=== PATIENT | male | born 1990 | race Caucasian/White ===

== ENCOUNTER 2016-10-30 19:39 | Emergency (ER) | payer BC, OTHER ==
[~2016-10-30] VITALS: Ht 180.3 cm; Wt 90.7 kg
[~2016-10-30 19:39] MED LIST: CILOXAN5 ML OP; IBUPROFEN 600600 M1 PO; MEDROLDOSEPACK PO; NOHOMEMEDICATIONS; NORCO 5-325 TA1 EACH PO
[2016-10-30] MEDS ORDERED: PERCOCET PO (19:58)
[2016-10-30 20:06] LABS: ABSOLUTE NEUTROPHILS 4.6 thou/uL (1.4-8.2); BASOPHILS 0.5 % (0.0-2.0); EOSINOPHILS 5.3 % (0.0-3.0); HEMATOCRIT 44.1 % (42.0-52.0); HEMOGLOBIN 15.6 gm/dL (14.0-18.0); LYMPHOCYTES 32.2 % (24.0-44.0); MCH 32.9 pg (26.0-34.0); MCHC 35.3 g/dL (28.0-37.0); MONOCYTES 9.6 % (1.0-8.0); PLATELET COUNT 220 thou/uL (150-400); POLYS 52.4 % (36.0-66.0); RBC 4.74 mil/uL (4.50-6.00); RDW 13.6 % (10.5-14.5); WBC 8.9 thou/uL (4.0-11.0)
[2016-10-30 20:09] LABS: MANUAL DIFF NO
[2016-10-30 20:16] LABS: CALCIUM 9.2 mg/dL (8.5-10.1); CREATININE 0.9 mg/dL (0.7-1.3); POTASSIUM 3.6 mmol/L (3.5-5.1)
[2016-10-30 20:23] LABS: ALBUMIN 4.4 g/dL (3.4-5.0); TOTAL BILIRUBIN 0.8 mg/dL (<0.1-1.0); TOTAL PROTEIN 7.6 g/dL (6.4-8.2)
[2016-10-30] MEDS ORDERED: ZOFRAN ODT4 M1 PO (20:45)
[2016-10-30 21:15] LABS: URINE BILIRUBIN NEGATIVE (Negative); URINE BLOOD NEGATIVE (Negative); URINE COLOR YELLOW; URINE GLUCOSE-RANDOM* NEGATIVE (Negative); URINE KETONES 1+ (Negative); URINE NITRITE NEGATIVE (Negative); URINE PROTEIN (DIPSTICK) NEGATIVE (Negative); URINE SPECIFIC GRAVITY 1.015 (1.003-1.035); URINE UROBILINOGEN 0.2 E.U./dl (0.2-1.0)
[2016-10-30 21:33] VITALS: BP 113/71
== END 2016-10-30 21:34 | disposition home or self-care (01) ==
LOC: ER 19:39
PROVIDERS: Nurse Practitioner Family
DX: R11.2 Nausea with vomiting, unspecified (principal); F17.210 Nicotine dependence, cigarettes, uncomplicated; F10.99 Alcohol use, unspecified with unspecified alcohol-induced disorder; Z88.1 Allergy status to other antibiotic agents; Z88.8 Allergy status to other drugs, medicaments and biological substances; Z98.890 Other specified postprocedural states

== ENCOUNTER 2017-03-17 17:38 | Emergency (ER) | payer OTHER ==
[~2017-03-17] VITALS: Ht 180.3 cm; Wt 89.4 kg
[~2017-03-17 17:38] MED LIST changes: +PERCOCET PO; +ZOFRAN ODT4 M1 PO
[2017-03-17] MEDS ORDERED: HYDROCODONE-AP1 EAC6 PO (18:49)
== END 2017-03-17 19:05 | disposition home or self-care (01) ==
LOC: ER 17:38
DX: M25.561 Pain in right knee (principal); F17.210 Nicotine dependence, cigarettes, uncomplicated; Z90.49 Acquired absence of other specified parts of digestive tract; Z98.890 Other specified postprocedural states; Z88.8 Allergy status to other drugs, medicaments and biological substances; Z88.0 Allergy status to penicillin

== ENCOUNTER 2017-07-24 10:53 | Emergency (ER) | payer OTHER ==
[~2017-07-24] VITALS: Ht 180.3 cm; Wt 97.5 kg
[~2017-07-24 10:53] MED LIST changes: +HYDROCODONE-AP1 EAC6 PO
[2017-07-24] MEDS ORDERED: IBUPROFEN 800800 M1 PO (11:13)
[2017-07-24] MEDS ORDERED: HYDROCODONE-AP1 EAC6 PO (12:39)
[2017-07-24 13:17] VITALS: BP 132/86
== END 2017-07-24 13:18 | disposition home or self-care (01) ==
LOC: ER 10:53
DX: M25.561 Pain in right knee (principal); Z90.49 Acquired absence of other specified parts of digestive tract; F17.210 Nicotine dependence, cigarettes, uncomplicated; Z88.1 Allergy status to other antibiotic agents; Z88.2 Allergy status to sulfonamides

== ENCOUNTER 2017-10-07 14:46 | Emergency (ER) | payer OTHER ==
[~2017-10-07] VITALS: Ht 180.3 cm; Wt 90.7 kg
[~2017-10-07 14:46] MED LIST changes: +IBUPROFEN 800800 M1 PO
[2017-10-07 14:50] VITALS: BP 114/88
[2017-10-07 15:20] LABS: ABSOLUTE NEUTROPHILS 7.4 thou/uL (1.4-8.2); BASOPHILS 0.5 % (0.0-2.0); EOSINOPHILS 2.4 % (0.0-3.0); HEMOGLOBIN 15.6 gm/dL (14.0-18.0); LYMPHOCYTES 24.1 % (24.0-44.0); MCH 31.9 pg (26.0-34.0); MCHC 34.6 g/dL (28.0-37.0); MCV 92.2 fL (80.0-100.0); PLATELET COUNT 240 thou/uL (150-400); RBC 4.88 mil/uL (4.50-6.00); RDW 13.6 % (10.5-14.5); WBC 11.3 thou/uL (4.0-11.0)
[2017-10-07 15:32] LABS: CALCIUM 9.1 mg/dL (8.5-10.1); CREATININE 0.9 mg/dL (0.7-1.3); POTASSIUM 3.5 mmol/L (3.5-5.1)
[2017-10-07] MEDS ORDERED: ONDANSETRON HCL4 M2 PO (15:44)
[2017-10-07 15:46] LABS: ALBUMIN 4.1 g/dL (3.4-5.0); TOTAL BILIRUBIN 0.4 mg/dL (<0.1-1.0); TOTAL PROTEIN 7.7 g/dL (6.4-8.2)
== END 2017-10-07 16:09 | disposition home or self-care (01) ==
LOC: ER 14:46
PROVIDERS: Emergency Medicine
DX: T67.3XXA Heat exhaustion, anhydrotic, initial encounter (principal); R11.2 Nausea with vomiting, unspecified; F17.210 Nicotine dependence, cigarettes, uncomplicated; Z90.49 Acquired absence of other specified parts of digestive tract; Z88.1 Allergy status to other antibiotic agents; Z88.8 Allergy status to other drugs, medicaments and biological substances; Z96.651 Presence of right artificial knee joint; X30.XXXA Exposure to excessive natural heat, initial encounter; Y92.89 Other specified places as the place of occurrence of the external cause; Y93.89 Activity, other specified; Y99.8 Other external cause status

== ENCOUNTER 2018-03-01 17:58 | Emergency (ER) | payer OTHER ==
[~2018-03-01] VITALS: Ht 180.3 cm; Wt 97.5 kg
[~2018-03-01 17:58] MED LIST changes: +ONDANSETRON HCL4 M2 PO
[2018-03-01] MEDS ORDERED: NORCO 10-325 T1 EACH PO (20:15)
[2018-03-01] MEDS ORDERED: ONDANSETRON HCL4 M2 PO (23:15)
[2018-03-01 23:50] VITALS: BP 118/68
== END 2018-03-01 23:52 | disposition home or self-care (01) ==
LOC: ER 17:58
DX: S43.004A Unspecified dislocation of right shoulder joint, initial encounter (principal); W19.XXXA Unspecified fall, initial encounter; Y93.89 Activity, other specified; Y92.89 Other specified places as the place of occurrence of the external cause; Y99.8 Other external cause status

== ENCOUNTER 2019-01-22 16:35 | Emergency (ER) | payer OTHER ==
[~2019-01-22] VITALS: Ht 180.3 cm; Wt 97.5 kg
[~2019-01-22 16:35] MED LIST changes: +NORCO 10-325 T1 EACH PO
[2019-01-22 18:54] LABS: EOSINOPHILS 3.7 % (0.0-3.0); HEMATOCRIT 45.8 % (42.0-52.0); HEMOGLOBIN 15.8 gm/dL (14.0-18.0); LYMPHOCYTES 30.3 % (24.0-44.0); MCHC 34.5 g/dL (28.0-37.0); MCV 92.9 fL (80.0-100.0); MONOCYTES 6.6 % (1.0-8.0); PLATELET COUNT 230 thou/uL (150-400); POLYS 58.4 % (36.0-66.0); RBC 4.93 mil/uL (4.50-6.00); WBC 10.2 thou/uL (4.0-11.0)
[2019-01-22 19:05] LABS: ANION GAP 7 mmol/L (7-16); BUN 11 mg/dL (7-18); CALCIUM 9.4 mg/dL (8.5-10.1); CHLORIDE 102 mmol/L (98-107); CO2 28 mmol/L (21-32); CREATININE 0.9 mg/dL (0.7-1.3); GLUCOSE 85 mg/dL (74-106); POTASSIUM 3.7 mmol/L (3.5-5.1); SODIUM 137 mmol/L (136-145)
[2019-01-22 19:15] LABS: SGOT 27 U/L (15-37); SGPT 60 U/L (30-65); TOTAL BILIRUBIN 0.5 mg/dL (<0.1-1.0); TOTAL PROTEIN 7.5 g/dL (6.4-8.2); TROPONIN-I <0.06 ng/mL (<0.06)
[2019-01-22] MEDS ORDERED: OMEPRAZOLE 20 M20 M1 PO (19:34)
[2019-01-22 19:42] VITALS: BP 137/89
--- NOTE | 2019-01-23 16:58 | EKG ---
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 : 1990 Requested By: Brayan Patterson Order Number: [id number] MD: Parmjit Mitchell Measurements Intervals [place] Rate: 73 P: -18 [place]: 161 QRS: 28 QRSD: 86 T: 13 QT: 406 QTc: 448 Interpretive Statements Sinus rhythm Nonspecific T wave abnormality No previous ECG available for comparison Electronically Signed On 01-23-2019 16:58:18 [employer] by Parmjit Mitchell [email or web address] <ELECTRONICALLY SIGNED> By: Parmjit Mitchell MD, [facility] 01/23/19 1658 1637 1637 Parmjit Mitchell MD, FACC /EPI
== END 2019-01-22 19:55 | disposition home or self-care (01) ==
LOC: ER 16:35
PROVIDERS: Emergency Medicine
DX: R07.89 Other chest pain (principal); Z90.49 Acquired absence of other specified parts of digestive tract; Z96.651 Presence of right artificial knee joint

== ENCOUNTER 2019-03-15 14:44 | Emergency (ER) | payer OTHER ==
[~2019-03-15] VITALS: Ht 180.3 cm; Wt 97.5 kg
[~2019-03-15 14:44] MED LIST changes: +OMEPRAZOLE 20 M20 M1 PO
[2019-03-15] MEDS ORDERED: NAPROSYN500 MG PO (18:05)
[2019-03-15] MEDS ORDERED: FLEXERIL PO (18:05)
[2019-03-15 18:15] VITALS: BP 118/90
== END 2019-03-15 18:15 | disposition home or self-care (01) ==
LOC: ER 14:44
DX: S46.912A Strain of unspecified muscle, fascia and tendon at shoulder and upper arm level, left arm, initial encounter (principal); S13.4XXA Sprain of ligaments of cervical spine, initial encounter; S83.8X1A Sprain of other specified parts of right knee, initial encounter; S29.9XXA Unspecified injury of thorax, initial encounter; F17.210 Nicotine dependence, cigarettes, uncomplicated; Z90.49 Acquired absence of other specified parts of digestive tract; Z88.1 Allergy status to other antibiotic agents; Z88.8 Allergy status to other drugs, medicaments and biological substances; V89.2XXA Person injured in unspecified motor-vehicle accident, traffic, initial encounter; Y93.89 Activity, other specified; Y92.89 Other specified places as the place of occurrence of the external cause; Y99.8 Other external cause status

== ENCOUNTER 2019-04-17 13:33 | Emergency (ER) | payer OTHER ==
[~2019-04-17] VITALS: Ht 180.3 cm; Wt 97.5 kg
[~2019-04-17 13:33] MED LIST changes: +FLEXERIL PO; +NAPROSYN500 MG PO
[2019-04-17] MEDS ORDERED: AMOXICILLIN 50500 MG PO (15:04)
[2019-04-17] MEDS ORDERED: IBUPROFEN 800800 M1 PO (15:04)
[2019-04-17 15:30] VITALS: BP 152/83
== END 2019-04-17 15:30 | disposition home or self-care (01) ==
LOC: ER 13:33
DX: K08.89 Other specified disorders of teeth and supporting structures (principal); F17.210 Nicotine dependence, cigarettes, uncomplicated; Z90.49 Acquired absence of other specified parts of digestive tract; Z91.018 Allergy to other foods; Z88.1 Allergy status to other antibiotic agents